=== PATIENT | male | born 1960 | race Two or more races ===

== ENCOUNTER 2019-07-14 10:41 | Emergency (ER) | payer MEDICAID ==
[~2019-07-14] VITALS: Ht 167.6 cm; Wt 94.3 kg
[2019-07-14 10:48] VITALS: Ht 167.6 cm; Wt 94.3 kg
[2019-07-14 12:17] LABS: BASOPHIL % 0.6 % (0-2); PLATELET COUNT 204 x10^3mcL (130-400); RED CELL DISTRIBUTION WIDTH 14.5 % (11.5-14.5)
[2019-07-14 12:21] LABS: CALCIUM 8.7 mg/dL (8.5-10.1); CARBON DIOXIDE 28.8 mmol/L (21-32); CHLORIDE SERUM 107 mmol/L (98-107); GFR1 > 60 mL/min; GLUCOSE SERUM 97 mg/dL (74-106); POTASSIUM SERUM 4.3 mmol/L (3.5-5.1); SODIUM SERUM 142 mmol/L (136-145)
[2019-07-14 12:28] LABS: ALBUMIN 3.7 g/dL (3.4-5.0); ALKALINE PHOSPHATASE 93 U/L (46-116); ALT/SGPT 54 U/L (16-63); AST/SGOT 26 U/L (15-37); BILIRUBIN TOTAL 0.9 mg/dL (0.20-1.00); TOTAL PROTEIN, SERUM 7.2 g/dL (6.4-8.2)
[2019-07-14 13:49] VITALS: BP 132/74
== END 2019-07-14 13:05 | disposition home or self-care (01) ==
LOC: ED 10:41
PROVIDERS: Emergency Medicine
DX: K40.30 Unilateral inguinal hernia, with obstruction, without gangrene, not specified as recurrent (principal)
CPT/HCPCS: 36415; J1885